=== PATIENT | male | born 1975 | race Caucasian/White ===

== ENCOUNTER 2024-12-16 15:33 | Emergency (ER) | payer BC, SELFPAY ==
[2024-12-16] VITALS (9 sets, daily range): BP systolic 126–139; BP diastolic 77–93; PULSE 71–101; RESP 13–21; TEMP 36.6; O2SAT 95–98
--- NOTE | 2024-12-16 15:30 | RT.EKG_ITS ---
APPROVED REPORT Exam: Resting ECG Reason for Exam: dizzy Patient Location: E HR:89 bpm ECG Measurements Heart Rate 89 AXIS NH 145 P 44 QRSd 82 QRS 37 QT 346 T 15 QTc 421 Conclusion Sinus rhythm...normal P axis, V-rate 60- 99
--- NOTE | 2024-12-16 16:24 | W.ED.GENAD ---
Discharge Plan Disposition Patient Disposition: Home Discharge Details Clinical Impression: Dizziness ED Provider: Charline Bass Home Meds and New Rx's Prescriptions: No Action amlodipine 5 mg tablet 5 mg PO DAILY Discharge Instructions Instructions: Vertigo (a type of dizziness) Additional Instructions: Call your primary care provider first thing Wednesday to schedule a follow-up appointment within the week to discuss today's emergency department visit. Your workup today was reassuring. There were no acute abnormalities on your blood work or EKG. Your symptoms fully resolved here in the emergency department after IV fluids, is possible that this was related to mild dehydration or alcohol/medication effect. I recommend holding off on any new supplements for alcohol use until you talk with your primary care provider. If you have any new panic attacks you may use your hydroxyzine as prescribed. I also recommend mindfulness practices. Apps such as [employer] are free and have great options available. Return to emergency care if you develop new severe headaches, weakness, persistent vertigo, difficulty walking, uncontrollable vomiting, or if you are very worried you need to be rechecked again immediately HPI General Date/Time Provider Initiated Documentation: 12/16/24 15:38. HPI Narrative: Javon is a 5-year-old male who presents to the emergency department today for evaluation of sudden onset of episodic dizziness/vertigo since this morning. Experienced anxiety attack yesterday morning, managed with hydroxyzine. At 1900 hours, took another dose of hydroxyzine and half a Xanax tablet. Socialized with friends, consumed two alcoholic beverages, no other substances. Went to bed at 0200 hours. This morning, woke at 0800 hours with spinning sensation when rolling over, episodes last approximately 1 minute, usually triggered by turning head, but not always. Dizziness accompanied by warm sensation and tingling. These persisted until arrival here. Has been using an ice pack on his head throughout the day to help alleviate symptoms. Denies associated recent illness, fever/chills, headache, congestion, vision changes, tinnitus, difficulty swallowing, ear pain, sore throat, cough, chest pain, nausea/vomiting, abdominal pain, change in bowel or bladder function, pedal edema or calf/redness/swelling. Has not eaten today due to nausea, now resolved. No recent surgery or immobility, blood clotting issues, hormone use, redness or swelling in calves, cancer. Denies history of high cholesterol, heart problems, lung problems, recent injuries, or head injuries prior to onset. Started new multivitamin and probiotic yesterday, wonders if contributing to symptoms. Past medical history history of hypertension, takes amlodipine daily, did not take today due to concerns about low blood pressure. Blood pressure reading here was 126/85. [place], has a vacation home in [facility]. Related Data Home Medications ?Medication ?Instructions ?Recorded ?Confirmed amlodipine 5 mg tablet 5 mg PO DAILY 12/16/24 12/16/24 Allergies Allergy/AdvReac Type Severity Reaction Status Date / Time No Known Allergies Allergy Unverified 12/16/24 15:44 General Stated Complaint: Dizzy/Sync CAROLINE: 3 Exam Narrative Exam Narrative: General Appearance: Normal. Patient is alert and oriented, no acute distress. Vital signs: Within normal limits. HEENT: Slightly tacky mucous membranes. PERRL, EOMs intact. No nystagmus. TMs pearly sandoval, translucent. Head atraumatic. Respiratory: Work of breathing, lung sounds clear bilaterally. No tachypnea. Cardiovascular: Regular rate and rhythm, heart sounds normal. Skin: Warm and dry, no rash. Neurological: Cranial nerves II-XII intact, no nystagmus. Normal tilt skew. Normal finger to finger, finger-nose, rapid alternating movements, [id number], tandem gait, gait. No dizziness with standing. Psychiatric: Normal. Course Vital Signs Vital signs: Vital Signs Temperature 36.6 C 12/16/24 15:40 Pulse 88 12/16/24 15:40 Respiratory Rate 18 12/16/24 15:40 Blood Pressure 126/85 12/16/24 15:40 Pulse Oximetry 98 12/16/24 15:40 Temperature 36.6 C 12/16/24 15:40 Temperature Source Oral 12/16/24 15:40 Pulse 88 12/16/24 15:40 Respiratory Rate 16 12/16/24 15:57 Respiratory Effort Short of Breath 12/16/24 15:57 Respiratory Depth Normal 12/16/24 15:57 Respiratory Pattern Normal 12/16/24 15:57 Blood Pressure 126/85 12/16/24 15:40 Pulse Oximetry 98 12/16/24 15:40 Oxygen Delivery Method Room Air 12/16/24 15:40 Oxygen Flow Rate 0 12/16/24 15:40 Pain Level 0 12/16/24 15:40 Medical Decision Making Initial Assessment: 49-year-old male with dizziness, potential dehydration, and anxiety. History of hypertension. Differential Diagnosis includes but is not limited to: BPPV, cardiac arrhythmia, dehydration, symptomatic anemia, orthostatic hypotension, electrolyte imbalance, thyroid dysfunction, effect of substance use (benzo + ETOH), viral illness. No red flags in history or physical exam concerning for central etiology of dizziness/posterior CVA (dizziness now resolved, no neuro deficits) or ACS (lack of chest pain/associated symptoms). ED Course: - Physical exam performed, including neurological exam, unremarkable. Radcliff-Hallpike negative - EKG performed - Electrolytes, kidney function, and liver function tests ordered. - Meclizine and IV fluids administered - Information on home exercises for benign positional vertigo provided. I independently interpreted the following tests: EKG reassuring, normal sinus rhythm rate 89, no changes consistent with acute ischemia, normal intervals. CBC, CMP, TSH, UA all unremarkable. Final Assessment: Neurological exam reassuring. Symptoms potentially due to anxiety, dehydration, or benign positional vertigo. While in the emergency department Javon received IV fluids and 12.5 mg of meclizine. He had no further episodes of dizziness (last one was in triage, lasted a few seconds and resolved spontaneously), was able to ambulate around department without discomfort or recurrence of symptoms Clinical Impression: - Dizziness, unclear etiology. Workup today reassuring -Anxiety w/ panic attacks Disposition: - Discharge home : reviewed discharge instructions with patient, including symptomatic management, anxiety management, and red flags indicating need for return to emergency care Patient Education: fluid intake importance, avoidance of EtOH/benzos Patient consented to the use of TRISHA PFSH All Active Problems (Updated 12/16/24 @ 18:09 by Charline Lyle) Dizziness (Acute) Social History Smoking/Tobacco Use Status: Never Smoking risk assessment performed?: Yes Alcohol Intake: current Alcohol Intake frequency: a few times a week Substance use type: does not use Housing: condominium Do you feel safe at home: Yes Do you feel safe in your relationship?: Yes
[2024-12-16 16:31] LABS: Abs Immature Grans 0.04 10^3/uL (0.0-0.06); HCT 47.3 % (40.0-50.0); HGB 16.3 g/dL (13.5-17.5); Immature Grans % 0.4 %; MCH 28.7 pg (27.0-33.0); MCHC 34.5 % (32.0-36.0); MCV 83 fL (80-95); MPV 10.3 fL (8.0-11.0); Platelet Count 246 10^3/uL (130-400); RBC 5.67 10^6/uL (4.36-5.78); RDW 12.5 % (11.8-14.1); RDW-SD 37.7 fL; WBC 10.31 10^3/uL (4.4-10.8)
[2024-12-16 16:32] LABS: Glucose Negative (Negative)
[2024-12-16] MEDS: Normal Saline 1,000 ML 1000 ML IV (16:33)
[2024-12-16] MEDS: Meclizine 12.5 MG TAB PO (16:33)
[2024-12-16 16:47] LABS: ALT 52 U/L (16-63); AST 24 U/L (15-37); Albumin 4.1 g/dL (3.4-5.0); Alkaline Phosphatase 95 U/L (46-116); Anion Gap 11.8 mmol/L (3-11); BUN 8 mg/dL (7-18); Bilirubin, Total 0.6 mg/dL (0.2-1.0); CO2 23.2 mmol/L (21.0-32.0); Calcium 9.2 mg/dL (8.5-10.1); Chloride 106 mmol/L (98-107); Estimated GFR 105.35 (mL/min/1.73m2); Glucose 126 mg/dL (74-106); Magnesium 2.1 mg/dL (1.8-2.4); Potassium 4.1 mmol/L (3.5-5.1); Sodium 141 mmol/L (136-145); Total Protein 7.7 g/dL (6.4-8.2)
[2024-12-16 16:55] LABS: TSH 1.31 uIU/mL (0.36-3.74)
== END 2024-12-16 18:16 | disposition home or self-care (01) ==
LOC: ER 18:15
PROVIDERS: Emergency Provider Nurse Practitioner Family; PCP Internal Medicine
DX: R42 Dizziness and giddiness (principal); F41.9 Anxiety disorder, unspecified
CPT/HCPCS: 99284; 99283; 80053; 93005; 96360; 96361; 81003; 83735; 84443; 85025; 93010